=== PATIENT | male | born 1995 | race Caucasian/White ===

== ENCOUNTER 2023-07-29 06:57 | Emergency (ER) | payer OTHER ==
--- NOTE | 2023-07-29 07:10 | ER ---
Nurse's Notes [facility] Name: Josemanuel Hassan Age: 28 yrs Sex: Male : 1995 Arrival Date: 07/29/2023 Time: 06:57 Bed 19 Private MD: Diagnosis: Anogenital (venereal) warts Presentation: 07/28 07:17 Chief complaint: Patient states: " I think I may have an STD" Reports groin discomfort. ph Coronavirus screen: Vaccine status: Patient reports being unvaccinated. Ebola Screen: No symptoms or risks identified at this time. Initial Sepsis Screen: Does the patient meet any 2 criteria? No. Patient's initial sepsis screen is negative. Does the patient have a suspected source of infection? No. Patient's initial sepsis screen is negative. Risk Assessment: Do you want to hurt yourself or someone else? Patient reports no desire to harm self or others. Onset of symptoms was July 29, 2023. 07:17 Method Of Arrival: Ambulatory ph 07:17 Acuity: GAETANO 4 ph Triage Assessment: 07:21 General: Appears in no apparent distress. Behavior is cooperative, appropriate for age. ph Pain: Denies pain. Neuro: Level of Consciousness is awake, alert, obeys commands, Oriented to person, place, time, situation. Derm: Skin is pink, warm \\T\\ dry. Historical: - Allergies: 07:04 No Known Allergies; ll1 - Immunization history:: Adult Immunizations unknown. - Infectious Disease History:: Denies. - Family history:: not pertinent. - Social history:: Smoking status: unknown. Screenin:22 [facility] ED Fall Risk Assessment (Adult) History of falling in the last 3 months, ph including since admission No falls in past 3 months (0 pts) Confusion or Disorientation No (0 pts) Intoxicated or Sedated No (0 pts) Impaired Gait No (0 pts) Mobility Assist Device Used No (0 pt) Altered Elimination No (0 pt) Score/Fall Risk Level 0 - 2 = Low Risk Oriented to surroundings, Maintained a safe environment, Hourly rounding (assess needs \\T\\ fall precautionary measures) done. Abuse screen: Denies threats or abuse. Denies injuries from another. Nutritional screening: No deficits noted. Tuberculosis screening: No symptoms or risk factors identified. Vital Signs: 07:17 BP 136 / 94; Pulse 99; Resp 18; Temp 97.9; Pulse Ox 99% on R/A; ph ED Course: 07:00 Patient arrived in ED. rg4 07:00 Danny Mclaughlin MD is Attending Physician. rt 07:04 Arm band placed on Patient placed in an exam room, on a stretcher. ll1 07:10 Gardenia Farias, RN is Primary Nurse. ph 07:21 Triage completed. ph 07:22 Patient has correct armband on for positive identification. Call light in reach. Side ph rails up X 1. Pulse ox on. NIBP on. 07:25 No provider procedures requiring assistance completed. Patient did not have IV access ph during this emergency room visit. Administered Medications: No medications were administered Medication: 07:23 VIS not applicable for this client. ph Outcome: 07:10 Discharge ordered by MD. rt 07:26 Discharged to home ambulatory, ph 07:26 Condition: good 07:26 Discharge instructions given to patient, Instructed on discharge instructions, follow up and referral plans. Demonstrated understanding of instructions, follow-up care, 07:27 Patient left the ED. ph Signatures: Gardenia Farias, RN RN Yolande Turcios rg4 Lizzy Wright RN RN ll1 Danny Mclaughlin MD MD rt
--- NOTE | 2023-07-29 07:10 | EDPHYS ---
Physician Documentation [facility] Name: Josemanuel Hassan Age: 28 yrs Sex: Male : 1995 Arrival Date: 07/29/2023 Time: 06:57 Bed 19 Private MD: ED Physician Danny Mclaughlin HPI: 07/28 07:33 This 28 yrs old Male presents to ER via Ambulatory with complaints of Groin Pain. rt 07:33 Patient presents to the ED with concerns for STDs. Patient states that his ex told him rt that she had HPV. He previously tested negative for gonorrhea, chlamydia. Reports having warts on his penis as well as some small lymph nodes. Denies other acute complaints at this time, symptoms are mild in severity, no other aggravating or elevating factors.. Historical: - Allergies: 07:04 No Known Allergies; ll1 - Immunization history:: Adult Immunizations unknown. - Infectious Disease History:: Denies. - Family history:: not pertinent. - Social history:: Smoking status: unknown. ROS: 07:33 Constitutional: Negative for fever, chills, and weight loss, Cardiovascular: Negative rt for chest pain, palpitations, and edema, Respiratory: Negative for shortness of breath, cough, wheezing, and pleuritic chest pain, Abdomen/GI: Negative for abdominal pain, nausea, vomiting, diarrhea, and constipation, Neuro: Negative for headache, weakness, numbness, tingling, and seizure, 07:33 Skin: Positive for Wart, negative for erythema, Exam: 07:33 Constitutional: This is a well developed, well nourished patient who is awake, alert, rt and in no acute distress. Head/Face: Normocephalic, atraumatic. Chest/axilla: Normal chest wall appearance and motion. Nontender with no deformity. No lesions are appreciated. Cardiovascular: Regular rate and rhythm with a normal S1 and S2. No gallops, murmurs, or rubs. Normal PMI, no JVD. No pulse deficits. Respiratory: Lungs have equal breath sounds bilaterally, clear to auscultation and percussion. No rales, rhonchi or wheezes noted. No increased work of breathing, no retractions or nasal flaring. Abdomen/GI: Soft, non-tender, with normal bowel sounds. No distension or tympany. No guarding or rebound. No evidence of tenderness throughout. Neuro: Awake and alert, GCS 15, oriented to person, place, time, and situation. Cranial nerves II-XII grossly intact. Motor strength 5/5 in all extremities. Sensory grossly intact. Cerebellar exam normal. Normal gait. Psych: Awake, alert, with orientation to person, place and time. Behavior, mood, and affect are within normal limits. 07:33 : 2 apparent condylomas at the base of the penis, no vesicular lesions. No penile discharge, no testicular tenderness or swelling, no palpable inguinal lymphadenopathy, Vital Signs: 07:17 BP 136 / 94; Pulse 99; Resp 18; Temp 97.9; Pulse Ox 99% on R/A; ph MDM: 07:02 Patient medically screened. rt 07:33 Differential Diagnosis HPV. Data reviewed: vital signs, nurses notes. Test considered rt but Not performed: Labs: Patient previously tested negative for gonorrhea, chlamydia, has no signs or symptoms consistent with these. Patient was referred to health department for further testing of HIV.. Counseling: I had a detailed discussion with the patient and/or guardian regarding the historical points, exam findings, and any diagnostic results supporting the discharge/admit diagnosis, the need for outpatient follow up. Administered Medications: No medications were administered Disposition Summary: 07/29/23 07:10 Discharge Ordered Notes: Location: Home rt Problem: new rt Symptoms: are unchanged rt Condition: Stable rt Diagnosis - Anogenital (venereal) warts rt Followup: rt - With: Private Physician - When: 2 - 3 days - Reason: Discharge Instructions: - Discharge Summary Sheet rt - Genital Warts rt - Human Papillomavirus rt Forms: - Medication Reconciliation Form rt - Thank You Letter rt - Antibiotic Education rt - Prescription Opioid Use rt - Patient Portal Instructions rt - Leadership Thank You Letter rt Signatures: Gardenia Farias RN RN ph Lizzy Wright RN RN ll1 Danny Mclaughlin MD MD rt
[2023-07-29 07:41] VITALS: BP 136/94; TEMP 97.9; O2SAT 99
== END 2023-07-29 07:27 | disposition home or self-care (01) ==
LOC: ER 06:57
DX: A63.0 Anogenital (venereal) warts (principal)
CPT/HCPCS: 99283